=== PATIENT | male | born 1970 | race Caucasian/White ===

== ENCOUNTER 2020-09-05 18:24 | Inpatient (IN) | payer OTHER ==
[~2020-09-05] VITALS: Ht 177.8 cm; Wt 106.1 kg
[2020-09-05] MEDS ORDERED: AMLODIPINE BES2.5 MG PO (20:46)
[2020-09-05] MEDS ORDERED: TOPROL XL50 MG PO (20:47)
[2020-09-05] MEDS ORDERED: METFORMIN HCL750 MG PO (20:49)
[2020-09-05] MEDS ORDERED: FLOMAX 0.4 MG0.4 MG PO (20:49)
[2020-09-05] MEDS ORDERED: CYMBALTA 30 MG30 MG PO (20:50)
[2020-09-05] MEDS ORDERED: TRAMADOL HCL50 MG PO (20:50)
[2020-09-05] MEDS ORDERED: MELOXICAM15 MG PO (20:51)
[2020-09-06 05:36] LABS: RED BLOOD COUNT 4.57 M/UL (4.20-5.50); WHITE BLOOD COUNT 13.6 K/UL (4.5-11.0)
[2020-09-06 05:59] LABS: BUN/CREATININE RATIO 17 (0-10)
[2020-09-06] MEDS ORDERED: HYZAAR 100-251 EACH PO (09:18)
[2020-09-06] MEDS ORDERED: VASCEPA1 GM PO (20:45)
[2020-09-06] MEDS ORDERED: DOXEPIN HCL25 MG PO (20:48)
[2020-09-07 02:00] LABS: RED BLOOD COUNT 4.9 M/UL (4.20-5.50); WHITE BLOOD COUNT 11.4 K/UL (4.5-11.0)
[2020-09-07 02:25] LABS: BUN/CREATININE RATIO 13 (0-10)
[2020-09-07] MEDS ORDERED: ATORVASTATIN CA20 MG PO (09:08)
[2020-09-07] MEDS ORDERED: BRILINTA 90 MG90 MG PO (09:08)
[2020-09-07] MEDS ORDERED: ASPIRIN EC81 MG PO (09:08)
[2020-09-07] MEDS ORDERED: LOPRESSOR 25 MG25 MG PO (09:08)
[2020-09-07] MEDS ORDERED: ISOSORBIDE MONO30 MG PO (09:08)
== END 2020-09-07 14:45 | disposition home or self-care (01) | DRG 247 ==
LOC: CCU 18:24 → PROG CARE 09-06 17:56
PROVIDERS: Internal Medicine; ADMIT Internal Medicine Interventional Cardiology
PROC: 027034Z Dilation of Coronary Artery, One Artery with Drug-eluting Intraluminal Device, Percutaneous Approach (ICD-10-PCS; 2020-09-05)
PROC: B2111ZZ Fluoroscopy of Multiple Coronary Arteries using Low Osmolar Contrast (ICD-10-PCS; 2020-09-05)
PROC: B2151ZZ Fluoroscopy of Left Heart using Low Osmolar Contrast (ICD-10-PCS; 2020-09-05)
PROC: 4A023N7 Measurement of Cardiac Sampling and Pressure, Left Heart, Percutaneous Approach (ICD-10-PCS; 2020-09-05)
PROC: B24BZZ4 Ultrasonography of Heart with Aorta, Transesophageal (ICD-10-PCS; principal; 2020-09-06)
DX: I21.19 ST elevation (STEMI) myocardial infarction involving other coronary artery of inferior wall (principal); K86.1 Other chronic pancreatitis; J98.11 Atelectasis; I08.1 Rheumatic disorders of both mitral and tricuspid valves; I10 Essential (primary) hypertension; Z20.822 Contact with and (suspected) exposure to COVID-19; E78.5 Hyperlipidemia, unspecified; F10.10 Alcohol abuse, uncomplicated; K29.70 Gastritis, unspecified, without bleeding; F17.210 Nicotine dependence, cigarettes, uncomplicated; G89.29 Other chronic pain; D72.829 Elevated white blood cell count, unspecified; E66.9 Obesity, unspecified; E11.9 Type 2 diabetes mellitus without complications; Z79.82 Long term (current) use of aspirin; Z79.01 Long term (current) use of anticoagulants; Z90.49 Acquired absence of other specified parts of digestive tract; Z68.33 Body mass index [BMI] 33.0-33.9, adult; Z79.84 Long term (current) use of oral hypoglycemic drugs
CPT/HCPCS: ECHO; 36415; 80048; 80053; 80061; 80307; 82550; 82553; 82962; 83036; 83735; 84100; 84439; 84443; 84484; 84550; 85025; 85347; 93005; 93306; 97161; 99152; 99153; J0461; J1170; J1644; J2370; J7030; Q9965